=== PATIENT | male | born 1985 | race Caucasian/White ===

== ENCOUNTER 2016-08-01 20:00 | Emergency (ER) | payer OTHER ==
[2016-08-01 20:18] VITALS: RESP 18; TEMP 97.7; O2SAT 95
[2016-08-01] MEDS ORDERED: LORazepam 1 MG TAB PO ONE (20:40)
[2016-08-01 22:12] LABS: % IMMATURE GRANULYOCYTES 0.1 % (0.0-1.1); ABSOLUTE IMMATURE GRANULOCYTES 0.01 10^3/uL (0.00-0.10); ADD DIFF? NO; ADD MORPH? NO; ADD SCAN? NO; ATYPICAL LYMPHOCYTE FLAG 0 (0-99); FRAGMENT RBC FLAG 0 (0-99); HEMATOCRIT 44.9 % (40.0-51.0); HEMOGLOBIN 15.7 g/dL (13.7-17.5); LEFT SHIFT FLG 0 (0-99); LIPEMIA HEMOLYSIS FLAG 90 (0-99); MEAN CELL VOLUME 82.8 fL (81.5-99.8); MEAN PLATELET VOLUME 10.6 fL (8.7-11.7); PLATELET CLUMPS FLAG 0 (0-99); PLATELET COUNT 323 10^3/uL (150-400); RED BLOOD CELL COUNT 5.42 10^6/uL (4.40-6.38)
[2016-08-01 22:18] LABS: ANION GAP 15 mEq/L (8-16); CARBON DIOXIDE 27 mEq/l (22-31); CHLORIDE 101 mEq/L (97-110); CREATININE 1.3 mg/dL (0.7-1.3); GLOMERULAR FILTRATION RATE > 60; GLUCOSE 101 mg/dL (70-100); POTASSIUM 3.7 mEq/L (3.5-5.2); SODIUM 143 mEq/L (134-144)
--- NOTE | 2016-08-01 22:31 | UCPHY ---
H & P Time Seen by Provider: 08/01/16 20:30 Patient Type: New HPI/ROS: This patient has been anxious since his girlfriend left town. He reports that he did have a binge drinking episode 4 days prior to arrival that caused him to vomits that night drinking rum with some buddies it is house. Since then he has had this anxiety and had some difficulty sleeping. He reports feeling restless. At times he feels like he has clouded thoughts. He has also had some difficulty sleeping. And times he has feeling of dyspnea and cold hands and feet. ROS: No constitutional complaints. HEENT: No headache. Pulmonary: No coughing. Cardiovascular: No lightheadedness. No chest pain or dyspnea currently. No belly pain. No vomiting since Saturday. Psychiatric: No suicidal ideation. 10 point ROS is otherwise negative. Past Medical/Surgical History: Otherwise healthy Family history of mother with anxiety. He reports that both his parents are heavy drinkers. His mother also has a history of thyroid disease. Smoking Status: Never smoked Physical Exam: General Appearance: Alert, no distress. Eyes: Pupils equal and round no pallor or injection. ENT, Mouth: Mucous membranes moist. Respiratory: There are no retractions, lungs are clear to auscultation. Cardiovascular: Regular rate and rhythm. Gastrointestinal: Abdomen is soft and nontender, no masses, bowel sounds normal. Neurological: Alert and ordered x3 with no focal deficits. Skin: Warm and dry, no rashes. Musculoskeletal: Neck is supple nontender. Extremities are symmetrical, full range of motion. Psychiatric: Patient is anxious. However he has no pressured speech. No psychotic thoughts. No suicidal ideation. No homicidal ideation. DIFFERENTIAL DIAGNOSIS: After history and physical exam differential diagnosis was considered for anxiety, insomnia, hypomania, thyroid disease, metabolic disarray Constitutional: Initial Vital Signs Temperature (C) 36.5 C 08/01/16 20:14 Heart Rate 78 08/01/16 20:14 Respiratory Rate 18 08/01/16 20:14 Blood Pressure 156/94 H 08/01/16 20:14 O2 Sat (%) 95 08/01/16 20:14 O2 Delivery Mode Room Air Allergies/Adverse Reactions: No Known Allergies Allergy (Unverified 08/01/16 20:14) Home Medications: Medication Instructions Recorded Zaleplon [Sonata] 10 mg PO HS PRN #12 capsule 08/01/16 MDM/Departure - MDM Diagnostics: CBC, basic metabolic panel and TSH are normal Medications Given: Discontinued Medications Lorazepam (Ativan) 1 mg PO EDNOW ONE Stop: 08/01/16 20:41 Last Admin: 08/01/16 21:17 Dose: 1 mg ED Course/Re-evaluation: Patient was very interested in having an organic workup to rule out thyroid disease or other problems. His results are normal and I counseled him in some detail regarding stress reduction techniques, the importance of sleep, importance of avoiding excessive alcohol etc. He was treated here with a dose of abdominal some improvement. Will symptoms on sonata for sleep. - Depart Disposition: Home, Routine, Self-Care Clinical Impression: Anxiety Insomnia Qualifiers: Insomnia type: unspecified Qualifier Code: (G47.00) Insomnia, unspecified Instructions: Generalized Anxiety Disorder (ED) Additional Instructions: Diagnosis: 1. Anxiety 2. Insomnia Plan: Daily exercise for 20-30 minutes Avoid excessive caffeine Daily relaxation such as a hot bath for 20 or 30 minutes Avoid excessive alcohol. Some nausea and night to help with sleep. Follow up with primary care physician listed below for further evaluation for any ongoing symptoms. Go to the emergency department for any significant worsening of symptoms despite the treatment plan Prescriptions: Zaleplon [Sonata] 10 mg PO HS PRN #12 capsule PRN Reason: insomnia Referrals: NONE *PRIMARY CARE P,. [Primary Care Provider] - As per Instructions Kwaku Alvarado DO [Doctor of Osteopathy] - As per Instructions - PQRS PQRS Measurement: NA
[2016-08-01 22:59] VITALS: BP 149/74; PULSE 84
== END 2016-08-01 22:46 | disposition home or self-care (01) ==
LOC: CED 20:00
DX: F41.1 Generalized anxiety disorder (principal); G47.00 Insomnia, unspecified; F10.10 Alcohol abuse, uncomplicated; Z81.1 Family history of alcohol abuse and dependence; Z83.49 Family history of other endocrine, nutritional and metabolic diseases
CPT/HCPCS: 80048-PO; 84443-PO; 85025-PO; 99204-PO; G0463-PO